=== PATIENT | female | born 1970 | race African-American/Black ===

== ENCOUNTER 2017-01-17 11:59 | Emergency (ER) | payer OTHER ==
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
[~2017-01-17 11:59] MED LIST: ASPIRIN81 M2; CRESTOR; HCTZ; LISINOPRIL; NEURONTIN; ROBAXIN; ZANAFLEX
== END 2017-01-17 13:33 | disposition home or self-care (01) ==
LOC: SED 11:59
DX: S13.9XXA Sprain of joints and ligaments of unspecified parts of neck, initial encounter (principal); S33.5XXA Sprain of ligaments of lumbar spine, initial encounter; S60.222A Contusion of left hand, initial encounter; I10 Essential (primary) hypertension; Z86.73 Personal history of transient ischemic attack (TIA), and cerebral infarction without residual deficits; V49.40XA Driver injured in collision with unspecified motor vehicles in traffic accident, initial encounter
CPT/HCPCS: 72040; 72100; 73130; 99284